=== PATIENT | male | born 1985 | race Caucasian/White ===

== ENCOUNTER 2024-09-13 07:11 | Emergency (ER) | payer SELFPAY ==
--- NOTE | 2024-09-13 07:20 | ECG_ITS ---
[facility] Test Date: 2024-09-13 Pat Name: Bishop Kimble Department: Room: Gender: Male Business Support Associate: : 1985 Requested By: Kit Najera Order Number: [id number] Paula MD: Joe Barksdale M.D. Measurements Intervals [place] Rate: 73 P: 66 [place]: 141 QRS: 67 QRSD: 101 T: 55 QT: 367 QTc: 406 Interpretive Statements SINUS RHYTHM INCOMPLETE RIGHT BUNDLE BRANCH BLOCK [90+ ms QRS DURATION, TERMINAL R IN V1/V2, 40+ ms S IN I/aVL/V4/V5/V6] No previous ECG available for comparison Electronically Signed On 09-14-2024 17:28:37 CDT by Joe Barksdale M.D. [email or web address]
--- NOTE | 2024-09-13 07:20 | XR_ITS ---
WS: [id number] Exam: XR ribs LT mn 3V w CXR1V [id number] Date/Time of Exam: 09/13/2024 7:46 AM Reason For Exam: w AP chest No acute LEFT rib fracture noted. Old LEFT posterior seventh rib fracture noted. No pleural or pulmonary reactive changes. The lungs are bilaterally clear. Normal cardiomediastinal silhouette. XR/XR ribs LT mn 3V w CXR1V [id number] IMPRESSION: 1. Negative LEFT rib study. No acute cardiopulmonary finding.
[2024-09-13 07:37] VITALS: BP 195/106; PULSE 80; RESP 16; TEMP 36.8; O2SAT 99; BMI 27.3
--- NOTE | 2024-09-13 07:45 | W.ED.BACK ---
HPI - Back Pain/Injury General: Chief Complaint: Back Pain/Injury Stated Complaint: Left side/rib pain Time Seen by Provider: 09/13/24 07:19 History of Present Illness: 38-year-old male presents emergency room left-sided rib pain. [place] the a log. Pain with ambulation and movement with inspiration no hemoptysis. Associated symptoms: Deny abdominal pain, chills, dysuria, fever(s) or urinary urgency Related Data Home Medications ?Medication ?Instructions ?Recorded ?Confirmed ibuprofen 200 mg tablet (Advil) 800 mg PO Q6H PRN Pain 09/13/24 09/13/24 Previous Rx's ?Medication ?Instructions ?Recorded diclofenac sodium 75 mg 75 mg PO Q12H PRN pain #20 tabs 09/13/24 tablet,delayed release hydrocodone 5 mg-acetaminophen 325 1 tab PO Q6H PRN pain #5 tabs 09/13/24 mg tablet Allergies Allergy/AdvReac Type Severity Reaction Status Date / Time No Known Allergies Allergy Verified 04/26/20 07:18 Review of Systems Const: Denies: fever(s) or chills Card: Reports: chest pain (Focal to the right lower ribs anterior axillary line) Resp: Denies: dyspnea GI: Denies: abdominal pain : Denies: dysuria, urinary frequency or urinary urgency Musc: Denies: neck pain or back pain Skin/Breast: Denies: rash Physical Exam Const: COMMON NORMALS: no acute distress GENERAL APPEARANCE: cooperative and comfortable ORIENTATION/CONSCIOUSNESS: Yes awake, Yes oriented to person, Yes oriented to place and Yes oriented to time HENMT: COMMON NORMALS: normocephalic, atraumatic and hearing grossly normal bilaterally HEAD & SCALP: normocephalic and atraumatic Chest: OTHER: No subcutaneous air no bruising or deformity examination of the left lateral chest wall. Patient indicates the area of greatest tenderness there is no subcutaneous emphysema noted Resp: COMMON NORMALS: normal respiratory effort, No retractions, No use of accessory muscles and clear to auscultation bilaterally AUSCULTATION: clear to auscultation bilaterally Cardio: COMMON NORMALS: regular rate, regular rhythm and No murmurs present (Cardio) RATE: regular rate RHYTHM: regular rhythm GI: COMMON NORMALS: Soft to palpation and No hepatosplenomegaly present AUSCULTATION: Yes normoactive bowel sounds PALPATION: Yes Soft to palpation, No Tenderness to palpation present (GI), No Guarding due to palpation present (GI) and Yes No hepatosplenomegaly present Extremity: COMMON NORMALS: normal to inspection, capillary refill normal, no clubbing, cyanosis or edema, no calf tenderness and no pedal edema Neuro: SENSORIUM/ORIENTATION: Yes oriented to person, Yes oriented to place and Yes oriented to time Skin: COMMON NORMALS: no rashes or lesions noted GENERAL SKIN EXAM: no rashes or lesions noted Course Vital Signs: Vital signs: Vital Signs Temperature 98.3 F 09/13/24 07:37 Pulse Rate 69 09/13/24 10:09 Respiratory Rate 16 09/13/24 07:37 Blood Pressure 149/89 09/13/24 10:09 Pulse Oximetry 95 09/13/24 10:09 Oxygen Delivery Me thod Room Air 09/13/24 08:39 MDM - Back Pain/Injury Medical Decision Making No signs of fracture on x-ray chest x-ray also shows normal lung [place] discharge patient home with diclofenac hydrocodone to use as needed follow-up as needed Medical Records I reviewed the patient's medical records. Labs I reviewed the patient's lab results. Radiology Impressions Ribs X-Ray 09/13/24 07:20 IMPRESSION: 1. Negative LEFT rib study. No acute cardiopulmonary finding. All radiology interpretation(s) finalized by discharge Discharge Plan Discharge Patient Disposition: Home Clinical Impression: Rib pain on left side Condition: Stable Prescriptions: New hydrocodone-acetaminophen 5-325 mg tablet 1 tab PO Q6H PRN (Reason: pain) Qty: 5 0RF diclofenac sodium 75 mg tablet,delayed release (DR/EC) 75 mg PO Q12H PRN (Reason: pain) Qty: 20 0RF No Action ibuprofen [Advil] 200 mg Tablet 800 mg PO Q6H PRN (Reason: Pain) Discharge Orders: Discharge ED (Routine); Ordered 09/13/24 Ordered By: Kit Jon Discharge Diet: Usual diet Discharge Activity: Increase activity as tolerated Patient Instructions: Opioid Safety, Pain Management Activity Restrictions/Additional Instructions: Thank you for choosing [facility] for your healthcare needs today. It is very important that you follow up as instructed or that you return to the Emergency Department should you have concerns or if your condition changes or worsens in any way. You were seen in the emergency room with complaint of rib pain. X-rays ribs not show any acute fractures you can use diclofenac as needed instead of ibuprofen you were also given hydrocodone to use to help with more severe episodes of pain. Print Language: Stateless Coding Level of Care Code ED [employer] for [place]
[2024-09-13] MEDS: ketorolac 60 mg/2 mL INJ IM (08:02)
[2024-09-13 08:39] VITALS: BP 169/94; PULSE 77; O2SAT 94
[2024-09-13 10:09] VITALS: BP 149/89; PULSE 69; O2SAT 95
== END 2024-09-13 10:09 | disposition home or self-care (01) ==
PROVIDERS: Emergency Provider Family Medicine
DX: R07.81 Pleurodynia (principal)
CPT/HCPCS: 71101; 93005; 96372; 99284; J1885